=== PATIENT | male | born 1965 | race Caucasian/White ===

== ENCOUNTER 2023-07-20 17:40 | Emergency (ER) | payer OTHER ==
[2023-07-20] MEDS ORDERED: Iopamidol 612 MG/ML 100 ML Bottle IVPUSH ONE (18:46)
[2023-07-20 19:18] LABS: BASOPHILS PERCENT AUTO 0.1 % (0.0-1.0); EOSINOPHILS PERCENT AUTO 0.3 % (0.0-6.0); HEMATOCRIT 32.2 % (42.0-52.0); HEMOGLOBIN 11.3 gm/dl (14.0-18.0); IMMATURE GRAN ABSOLUTE AUTO 0.09 K/mm3 (0.00-0.05); IMMATURE GRAN PERCENT AUTO 0.8 % (0.0-0.4); LYMPHOCYTES ABSOLUTE AUTO 0.4 K/mm3 (1.0-4.8); LYMPHOCYTES PERCENT AUTO 3.6 % (24.0-44.0); MEAN CORPUSCULAR HEMOGLOBIN 30.1 pg (28.0-32.0); MEAN CORPUSCULAR HGB CONC 35.1 g/dl (32.0-36.0); MEAN CORPUSCULAR VOLUME 85.6 fl (83.0-99.0); MEAN PLATELET VOLUME 8.3 fl (9.4-12.4); MONOCYTES PERCENT AUTO 8.8 % (0.0-8.0); NEUTROPHILS ABSOLUTE AUTO 9.7 K/mm3 (1.8-7.7); NEUTROPHILS PERCENT AUTO 86.4 % (41.0-71.0); PLATELET COUNT,PLT 196 K/mm3 (150-400); RED BLOOD CELL COUNT 3.76 M/mm3 (4.52-5.90); WHITE BLOOD CELL COUNT,WBC 11.26 K/mm3 (3.9-11.3)
[2023-07-20 19:39] LABS: A/G RATIO 0.8 (1-2); ALANINE AMINOTRANSFERASE,ALT 270 U/L (16-63); ALBUMIN 2.5 g/dl (3.4-5.0); ALKALINE PHOSPHATASE 423 U/L (46-116); ANION GAP 16.5 (5-15); ASPARTATE AMNIOTRANSFERASE,AST 162 U/L (15-37); BILIRUBIN TOTAL 4.5 mg/dL (0.2-1.0); BLOOD UREA NITROGEN,BUN 60 mg/dL (7-18); BUN/CREATININE RATIO 26.1 (14-18); CALCIUM 8.4 mg/dL (8.5-10.1); CARBON DIOXIDE,CO2 21 mEq/L (21-32); CHLORIDE,CL 87 mEq/L (98-107); ESTIMATED GFR 32 mL/min (>60); GLUCOSE RANDOM 234 mg/dL (70-99); LIPASE 41 U/L (16-77); POTASSIUM,K 5.5 mEq/L (3.5-5.1); SODIUM,NA 119 mEq/L (136-145); TROPONIN I HIGH SENSITIVITY 9 pg/mL (<=76)
[2023-07-20 19:46] LABS: CREATININE 2.3 mg/dL (0.7-1.3); PROTEIN TOTAL,TP 5.8 g/dl (6.4-8.2)
[2023-07-20] MEDS: Sodium Chloride 0.9% 10 ML Syringe FLUSH ONE (19:53)
[2023-07-20] MEDS: Morphine 4 MG/ML Syringe IVPUSH ONE (19:53)
[2023-07-20 20:02] LABS: INR 1.55; PROTHROMBIN TIME 16.1 SECONDS (9.7-12.0)
[2023-07-20 20:43] LABS: APPEARANCE,URINE SLT CLOUDY (Clear); BILIRUBIN,URINE 3+ (Negative); COLOR,URINE DARK YELLOW (Yellow); GLUCOSE,URINE NEGATIVE (Negative); KETONES,URINE TRACE (Negative); LEUKOCYTE ESTERASE,URINE NEGATIVE (Negative); NITRITE,URINE NEGATIVE (Negative); OCCULT BLOOD,URINE NEGATIVE (Negative); PH,URINE 5.5 (5.0-8.0); PROTEIN,URINE 1+ (Negative); UROBILINOGEN,URINE 0.2 (0.2-1.0)
[2023-07-20 21:18] LABS: BACTERIA,URINE MODERATE /hpf (FEW); MUCUS,URINE MODERATE /hpf (FEW); RBC,URINE 0-5 /hpf (0-5); SQUAMOUS EPITHELIAL CELLS,UR 0-5 /hpf (0-5); WBC,URINE 0-5 /hpf (0-5)
== END 2023-07-20 21:16 | disposition home or self-care (01) ==
LOC: JD.ED 17:40
DX: N13.30 Unspecified hydronephrosis (principal); C22.9 Malignant neoplasm of liver, not specified as primary or secondary; C15.9 Malignant neoplasm of esophagus, unspecified; Z88.6 Allergy status to analgesic agent; Z88.0 Allergy status to penicillin
CPT/HCPCS: 36415; 74176; 74176-26; 80053; 81001; 83605; 83690; 84484; 85025; 85610; 93005; 93010; 96374; 99285; 99285-25; J2270; J3490

== ENCOUNTER 2023-07-23 14:06 | Inpatient (IN) | payer OTHER ==
[2023-07-23] MEDS: Lactated Ringers 1,000 ML IV SCH (14:48)
[2023-07-23 14:49] LABS: BASOPHILS PERCENT AUTO 0.1 % (0.0-1.0); EOSINOPHILS PERCENT AUTO 0.1 % (0.0-6.0); HEMATOCRIT 27.9 % (42.0-52.0); HEMOGLOBIN 9.9 gm/dl (14.0-18.0); IMMATURE GRAN ABSOLUTE AUTO 0.17 K/mm3 (0.00-0.05); IMMATURE GRAN PERCENT AUTO 1.2 % (0.0-0.4); LYMPHOCYTES ABSOLUTE AUTO 0.4 K/mm3 (1.0-4.8); LYMPHOCYTES PERCENT AUTO 2.7 % (24.0-44.0); MEAN CORPUSCULAR HEMOGLOBIN 30.2 pg (28.0-32.0); MEAN CORPUSCULAR HGB CONC 35.5 g/dl (32.0-36.0); MEAN CORPUSCULAR VOLUME 85.1 fl (83.0-99.0); MEAN PLATELET VOLUME 8.4 fl (9.4-12.4); MONOCYTES PERCENT AUTO 7.4 % (0.0-8.0); NEUTROPHILS ABSOLUTE AUTO 12.3 K/mm3 (1.8-7.7); NEUTROPHILS PERCENT AUTO 88.5 % (41.0-71.0); PLATELET COUNT,PLT 231 K/mm3 (150-400); RED BLOOD CELL COUNT 3.28 M/mm3 (4.52-5.90); WHITE BLOOD CELL COUNT,WBC 13.87 K/mm3 (3.9-11.3)
[2023-07-23] MEDS: Metoclopramide 10 MG/2 ML SDV IVPUSH ONE (14:50)
[2023-07-23] MEDS: HYDROmorphone 0.5 MG/0.5 ML Syringe IVPUSH ONE ×2 (14:51→16:16)
[2023-07-23 15:02] LABS: HEMOGLOBIN A1C 5.6 %
[2023-07-23 15:17] LABS: A/G RATIO 0.6 (1-2); ALBUMIN 2.2 g/dl (3.4-5.0); BILIRUBIN TOTAL 4.3 mg/dL (0.2-1.0); BUN/CREATININE RATIO 33.5 (14-18); CALCIUM 8.6 mg/dL (8.5-10.1); EST CRCL DRUG DOSING (CG) 30.59 mL/min; MAGNESIUM 2.4 mg/dL (1.8-2.4)
[2023-07-23 15:26] LABS: CREATININE 2.6 mg/dL (0.7-1.3)
[2023-07-23 15:27] LABS: PROTEIN TOTAL,TP 5.7 g/dl (6.4-8.2)
[2023-07-23] MEDS: Insulin Regular, Human 100 Units/ML 3 ML Vial IV ONE (16:14)
[2023-07-23] MEDS: Calcium Gluconate 10% 1 GM/10 ML SDV IVPUSH ONE (16:15)
[2023-07-23] MEDS ORDERED: oxyCODONE 5 MG Tab PO PRN (16:17)
[2023-07-23] MEDS ORDERED: Ondansetron 4 MG Tab.DIS PO PRN (16:17)
[2023-07-23] MEDS ORDERED: Ondansetron 4 MG/2 ML SDV IV PRN (16:17)
[2023-07-23] MEDS: 50% Dextrose in Water 50 ML Syringe IVPUSH ONE (16:35)
[2023-07-23] MEDS: Sodium Chloride 0.9% 1,000 ML IV SCH (16:35)
[2023-07-23] MEDS: fentaNYL 25 MCG/HR Transdermal Patch TRDERM SCH (17:46)
[2023-07-23] MEDS: 50% Dextrose in Water 50 ML SDV IV ONE (19:26)
[2023-07-23] MEDS: oxyCODONE ER 20 MG TAB.ER PO SCH (20:33)
[2023-07-23 21:24] LABS: ANION GAP 16.6 (5-15); BUN/CREATININE RATIO 33.5 (14-18); CALCIUM 8.3 mg/dL (8.5-10.1); CREATININE 2.6 mg/dL (0.7-1.3); EST CRCL DRUG DOSING (CG) 30.59 mL/min; POTASSIUM,K 5.6 mEq/L (3.5-5.1)
[2023-07-23] MEDS: HYDROmorphone 1 MG/ML Syringe IVPUSH PRN (21:44)
[2023-07-24] MEDS: Sodium Chloride 0.9% 1,000 ML IV SCH (00:59)
[2023-07-24] MEDS: fentaNYL 25 MCG/HR Transdermal Patch TRDERM SCH (01:13)
[2023-07-24] MEDS: fentaNYL 50 MCG/HR Transdermal Patch TRDERM SCH (01:20)
[2023-07-24] MEDS: Midodrine 5 MG Tab PO ONE (02:51)
[2023-07-24] MEDS: Sodium Chloride 0.9% 1,000 ML IV ONE ×3 (02:54→06:19)
[2023-07-24] MEDS: Phenylephrine 10 MG in Sodium Chloride 0.9% 99 ML IV SCH (03:55)
[2023-07-24] MEDS: HYDROmorphone 1 MG/ML Syringe IVPUSH PRN (03:58)
[2023-07-24 05:40] LABS: BASOPHILS PERCENT AUTO 0.1 % (0.0-1.0); HEMATOCRIT 20.5 % (42.0-52.0); IMMATURE GRAN ABSOLUTE AUTO 0.34 K/mm3 (0.00-0.05); IMMATURE GRAN PERCENT AUTO 1.9 % (0.0-0.4); LYMPHOCYTES ABSOLUTE AUTO 0.3 K/mm3 (1.0-4.8); LYMPHOCYTES PERCENT AUTO 1.7 % (24.0-44.0); MEAN CORPUSCULAR HEMOGLOBIN 30.9 pg (28.0-32.0); MEAN CORPUSCULAR HGB CONC 35.1 g/dl (32.0-36.0); MEAN PLATELET VOLUME 9.3 fl (9.4-12.4); MONOCYTES ABSOLUTE AUTO 0.8 K/mm3 (0.0-0.8); MONOCYTES PERCENT AUTO 4.3 % (0.0-8.0); NEUTROPHILS ABSOLUTE AUTO 16.7 K/mm3 (1.8-7.7); PLATELET COUNT,PLT 238 K/mm3 (150-400); RED BLOOD CELL COUNT 2.33 M/mm3 (4.52-5.90)
[2023-07-24 05:47] LABS: HEMOGLOBIN 7.2 gm/dl (14.0-18.0)
[2023-07-24 06:07] LABS: A/G RATIO 0.7 (1-2); ALBUMIN 1.8 g/dl (3.4-5.0); ANION GAP 19.9 (5-15); BILIRUBIN TOTAL 3.3 mg/dL (0.2-1.0); BUN/CREATININE RATIO 35.2 (14-18); CALCIUM 8.2 mg/dL (8.5-10.1); CREATININE 2.7 mg/dL (0.7-1.3); EST CRCL DRUG DOSING (CG) 29.46 mL/min; POTASSIUM,K 5.9 mEq/L (3.5-5.1); PROTEIN TOTAL,TP 4.4 g/dl (6.4-8.2)
[2023-07-24] MEDS: Norepinephrine 4 MG/4 ML SDV ONE (06:13)
[2023-07-24 06:18] LABS: SLIDE REVIEW ABNORMAL SMEAR
[2023-07-24] MEDS: Dextrose 5% in Water 250 ML ONE (06:18)
[2023-07-24] MEDS: Norepinephrine 4 MG in Dextrose 5% in Water 246 ML IV SCH (06:20)
[2023-07-24] MEDS: Cefepime 2 GM in Sodium Chloride 0.9% 50 ML IV SCH (06:57)
[2023-07-24] MEDS ORDERED: oxyCODONE 5 MG Tab PO PRN (07:02)
[2023-07-24 07:40] LABS: LACTIC ACID 7.8 mmol/L (0.4-2.0)
[2023-07-24] MEDS: VANCOmycin 1.5 GM/300 ML 1.5 GM in Premix Bag 1 BAG IV ONE (08:08)
[2023-07-24 08:21] LABS: INFLUENZA A NAA NEGATIVE (NEGATIVE)
[2023-07-24] MEDS: Furosemide 40 MG/4 ML VIAL IVPUSH SCH (08:32)
[2023-07-24] MEDS: Enoxaparin 40 MG/0.4 ML Syringe SUBCUT SCH (08:39)
[2023-07-24] MEDS: Albuterol/Ipratropium 3.0-0.5 MG/3 ML Neb Soln NEB PRN (08:40)
[2023-07-24] MEDS: Sodium Chloride 0.9% 250 ML IV SCH (09:43)
[2023-07-24] MEDS: Pantoprazole 40 MG Vial IVPUSH SCH (09:45)
[2023-07-24] MEDS: LORazepam 2 MG/ML SDV IVPUSH PRN ×2 (11:39→15:19)
[2023-07-24 14:25] LABS: A/G RATIO 0.7 (1-2); ALBUMIN 1.6 g/dl (3.4-5.0); ANION GAP 28.6 (5-15); BILIRUBIN TOTAL 3.2 mg/dL (0.2-1.0); BUN/CREATININE RATIO 34.5 (14-18); CALCIUM 7.5 mg/dL (8.5-10.1); CREATININE 2.9 mg/dL (0.7-1.3); EST CRCL DRUG DOSING (CG) 27.43 mL/min
[2023-07-24 14:28] LABS: POTASSIUM,K 6.6 mEq/L (3.5-5.1)
[2023-07-24] MEDS: fentaNYL 100 MCG/2 ML SDV IVPUSH PRN (15:18)
[2023-07-24] MEDS: LORazepam 2 MG/ML SDV ONE (15:25)
[2023-07-24] MEDS: fentaNYL 100 MCG/2 ML SDV ONE (15:25)
== END 2023-07-24 16:52 | disposition expired | DRG 871 ==
LOC: JD.ED 14:06 → JD.MS 16:15 → JD.ICU 07-24 02:40
PROVIDERS: ADMIT Hospitalist; ATTEND Internal Medicine
PROC: 3E03329 Introduction of Other Anti-infective into Peripheral Vein, Percutaneous Approach (ICD-10-PCS; 2023-07-23)
PROC: 30233N1 Transfusion of Nonautologous Red Blood Cells into Peripheral Vein, Percutaneous Approach (ICD-10-PCS; principal; 2023-07-24)
PROC: 3E033XZ Introduction of Vasopressor into Peripheral Vein, Percutaneous Approach (ICD-10-PCS; 2023-07-24)
DX: A41.9 Sepsis, unspecified organism (principal); E43 Unspecified severe protein-calorie malnutrition; R65.21 Severe sepsis with septic shock; K72.00 Acute and subacute hepatic failure without coma; N17.1 Acute kidney failure with acute cortical necrosis; E87.1 Hypo-osmolality and hyponatremia; C15.9 Malignant neoplasm of esophagus, unspecified; Z88.4 Allergy status to anesthetic agent; C79.51 Secondary malignant neoplasm of bone; C78.7 Secondary malignant neoplasm of liver and intrahepatic bile duct; N18.4 Chronic kidney disease, stage 4 (severe); E87.20 Acidosis, unspecified; K22.2 Esophageal obstruction; Z51.5 Encounter for palliative care; Z66 Do not resuscitate; M54.50 Low back pain, unspecified; E86.0 Dehydration; D64.9 Anemia, unspecified; K21.9 Gastro-esophageal reflux disease without esophagitis; E87.5 Hyperkalemia; E87.8 Other disorders of electrolyte and fluid balance, not elsewhere classified; K72.10 Chronic hepatic failure without coma; D63.0 Anemia in neoplastic disease; I95.9 Hypotension, unspecified; D63.1 Anemia in chronic kidney disease; Z88.0 Allergy status to penicillin; Z88.8 Allergy status to other drugs, medicaments and biological substances; Z79.2 Long term (current) use of antibiotics; Z79.899 Other long term (current) drug therapy; Z97.8 Presence of other specified devices; Z68.25 Body mass index [BMI] 25.0-25.9, adult; Z92.21 Personal history of antineoplastic chemotherapy; E11.22 Type 2 diabetes mellitus with diabetic chronic kidney disease
CPT/HCPCS: 36415; 71045; 80053; 83036; 83735; 83880; 83930; 85025; 86140; J1170; J1815; J2765; J7120; 36430; 80048; 83605; 85018; 86850; 86900; 86901; 86922; 87040; 87502-QW; 93010; 94640; 96361; 96374; 96375; 96376; 99223; 99285; 99285-25; A9270-GY; C9113; J0612; J0692; J1650; J1940; J2060; J2371; J3010; J3370; J3490; J7030; J7050; J7060; J7620-GY; P9016